=== PATIENT | female | born 1995 | race Caucasian/White ===

== ENCOUNTER → 2020-06-23 | Outpatient (CLI) | payer OTHER ==
[2020-07-24 10:31] LABS: BASO % 0.6 % (0.0-1.0); EOS # 0.1 10^3/uL (0.0-0.5); EOS % 1.9 % (0.0-3.0); ERYTHROCYTE SEDIMENTATION RATE 6 mm/hr (0-20); HEMATOCRIT 41.7 % (36.0-47.0); HEMOGLOBIN 14.1 g/dl (12.0-15.5); LYMPH # 2.4 10^3/uL (1.5-5.0); LYMPH % 38.7 % (24.0-44.0); MEAN CORPUSCULAR HEMOGLOBIN 30.3 pg (27.0-33.0); MEAN CORPUSCULAR HGB CONC 33.8 g/dl (32.0-36.5); MEAN CORPUSCULAR VOLUME 89.7 fl (80.0-96.0); MONO # 0.3 10^3/uL (0.0-0.8); MONO % 4.8 % (0.0-5.0); NEUTROPHILS # 3.4 10^3/uL (1.5-8.5); NEUTROPHILS % 53.8 % (36.0-66.0); PLATELET COUNT, AUTOMATED 241 10^3/uL (150-450); RED BLOOD COUNT 4.65 10^6/uL (4.00-5.40); WHITE BLOOD COUNT 6.2 10^3/uL (4.0-10.0)
[2020-07-25 11:37] LABS: C1 ESTERASE INHIB. FUNCTIONAL SEE SEPARATE REPORT
[2020-07-25 11:38] LABS: ANTINUCLEAR ANTIBODIES DIRECT See Separate Report; C1 ESTER INHIB. NON FUNCTIONAL SEE SEPARATE REPORT
[2020-07-25 11:39] LABS: COMPLEMENT TOTAL (CH50) SEE SEPARATE REPORT U/ML
[2020-08-06 21:34] LABS: COMPLEMENT C3 150 MG/DL (90-180); COMPLEMENT C4 24 MG/DL (10-40); RHEUMATOID FACTOR QUANT < 10.0 IU/ML (<15.0); THYROXINE (T4) 7.4 UG/DL (4.5-12.0); TOTAL T3 95.8 NG/DL (60.0-181.0)
== END ==
LOC: M LAB 14:00
PROVIDERS: ATTEND Allergy & Immunology Allergy
DX: T78.3XXA Angioneurotic edema, initial encounter (principal)